=== PATIENT | female | born 1975 | race Caucasian/White ===

== ENCOUNTER 2016-09-07 10:23 | Emergency (ER) | payer SELFPAY ==
[~2016-09-07] VITALS: Ht 172.7 cm; Wt 122.5 kg
[2016-09-07 11:20] VITALS: BP 133/94
== END 2016-09-07 11:20 | disposition home or self-care (01) ==
LOC: ED 10:23
DX: M20.012 Mallet finger of left finger(s) (principal)
CPT/HCPCS: Q0092